=== PATIENT | female | born 1985 | race American Indian/Alaskan Native ===

== ENCOUNTER 2017-04-14 12:49 | Emergency (ER) | payer MEDICAID ==
[2017-04-14 14:02] LABS: Basophils % (Auto) 0.3 % (0.0-1.8); Hematocrit 37.4 % (30.3-42.9); Hemoglobin 11.8 gm/dl (10.1-14.3); Mean Corpuscular HGB Conc 32 % (30-34); Mean Corpuscular Volume 78 fl (79-97); Platelet Count 235 K/mm3 (140-440); Red Blood Count 4.78 M/mm3 (3.65-5.03); Red Cell Distribution Width 13.4 % (13.2-15.2); White Blood Count 12.7 K/mm3 (4.5-11.0)
[2017-04-14 14:05] LABS: Alanine Aminotransferase 6 units/L (7-56); Albumin 4.5 g/dL (3.9-5); Albumin/Globulin Ratio 1.7 %; Alkaline Phosphatase 37 units/L (35-129); Anion Gap 16 mmol/L; BUN/Creatinine Ratio 10; Blood Urea Nitrogen 4 mg/dL (7-17); Calcium 9.2 mg/dL (8.4-10.2); Carbon Dioxide 25 mmol/L (22-30); Glucose 88 mg/dL (65-100); Lipase 30 units/L (13-60); Potassium 3.8 mmol/L (3.6-5.0); Sodium 135 mmol/L (137-145); Total Protein 7.1 g/dL (6.3-8.2)
[2017-04-14 14:17] LABS: Mean Corpuscular Hemoglobin 25 pg (28-32)
[2017-04-14 14:57] LABS: Bilirubin,Urine NEG (Negative); Blood,Urine LG (Negative); Ketones,Urine NEG (Negative); Leukocyte Esterase,Urine LG (Negative); Mucus,Urine 3+ /HPF; Nitrite,Urine NEG (Negative); Urobilinogen,Urine < 2.0 mg/dL (<2.0)
[2017-04-14 15:03] LABS: RBC,Urine > 180.0 /HPF (0.0-6.0)
[2017-04-14 15:04] LABS: WBC,Urine > 180.0 /HPF (0.0-6.0)
--- NOTE | 2017-04-14 19:53 | Emergency Department Report ---
ED Female HPI - General Chief complaint: Urogenital-Female Stated complaint: RIGHT FLANK PAIN Time Seen by Provider: 04/14/17 19:48 Source: patient Mode of arrival: Ambulatory Limitations: No Limitations - History of Present Illness Initial comments: Patient here reports that she has severe right flank pain 3 days with nausea and diarrhea. She says she took a test yesterday it was positive. She says she is having burning with urination. Denies any vomiting. He is also have been lower pelvic cramping. She says she's spotting lightly from her vaginal area. Patient said that she has her MACHINE BURRER at [place] [facility] for ultrasound at [place] which was done today. She said that the field service technician poultry told her that there was no detected heart rate for her baby but she couldn' t give her any information she has placenta reported MACHINE BURRER and MACHINE BURRER will let her know. Patient said that she came to this ER because she wants to know what' s going on. Patient said that she had a positive test in February and she started bleeding and she went to [facility] where they told her that she had a miscarriage and she went back to [place] and they did follow-up test until they told her that her level shows that she was not . She said she did a test that came back positive so she went to [place] and they did a urine and it was positive and she states went to the MACHINE BURRER who ordered an ultrasound because she was having in flank pain. She says she had the ultrasound done today and she is not satisfied with their answer and came here to be seen. Patient also had STD testing done at [facility]. Denies any fever or chills. Denies any history of kidney stones. MD Complaint: vaginal bleeding, dysuria, pelvic pain, other (flank pain, nausea) Onset/Timin -: days(s) Radiation: non-radiating Severity: severe Severity scale (0 -10): 9 Quality: cramping Consistency: intermittent Worsens with: none Are you Now?: Yes (she said test at [facility] was positive) Associated Symptoms: vaginal bleeding, abdominal pain, nausea/vomiting, dysuria. denies: vaginal discharge, fever/chills, headaches, loss of appetite, hematuria, rash, seizure, shortness of breath, syncope, weakness - Related Data Sexually active: Yes Home Medications Medication Instructions Recorded Confirmed Last Taken metFORMIN [Glucophage] 04/30/16 Unknown Previous Rx's Medication Instructions Recorded Last Taken Type Nitrofurantoin Monohyd/M-Cryst 100 mg PO Q12H 7 Days #14 capsule 04/15/17 Unknown Rx [Macrobid 100 mg Capsule] Allergies Allergy/AdvReac Type Severity Reaction Status Date / Time No Known Allergies Allergy Verified 02/03/14 04:28 ED Review of Systems ROS: Stated complaint: RIGHT FLANK PAIN Other details as noted in HPI Comment: All other systems reviewed and negative Constitutional: no symptoms reported Respiratory: no symptoms reported Cardiovascular: denies: chest pain, palpitations, dyspnea on exertion, edema, syncope, paroxysmal nocturnal dyspnea Gastrointestinal: abdominal pain, nausea, diarrhea. denies: vomiting, constipation, hematemesis, melena, hematochezia Genitourinary: dysuria, abnormal menses. denies: urgency, frequency, hematuria , discharge, dyspareunia Musculoskeletal: back pain. denies: arthralgia, myalgia Skin: denies: rash Neurological: denies: headache, weakness, numbness, paresthesias, confusion, abnormal gait, vertigo ED Past Medical Hx - Past Medical History Previous Medical History?: Yes Hx Diabetes: Yes (pre-diabetes) Hx Seizures: Yes Hx Asthma: Yes Additional medical history: heart murmur - Surgical History Past Surgical History?: No - Family History Family history: no significant - Social History Smoking Status: Current Some Day Smoker Substance Use Type: None - Medications Home Medications: Home Medications Medication Instructions Recorded Confirmed Last Taken Type metFORMIN [Glucophage] 04/30/16 Unknown History Nitrofurantoin Monohyd/M-Cryst 100 mg PO Q12H 7 Days #14 capsule 04/15/17 Unknown Rx [Macrobid 100 mg Capsule] ED Physical Exam - General Limitations: No Limitations General appearance: alert, in no apparent distress - Head Head exam: Present: atraumatic, normocephalic, normal inspection - Eye Eye exam: Present: normal appearance, PERRL, EOMI Pupils: Present: normal accommodation - ENT ENT exam: Present: normal exam, normal orophraynx, mucous membranes moist, TM's normal bilaterally, normal external ear exam - Neck Neck exam: Present: normal inspection, full ROM. Absent: tenderness, meningismus, lymphadenopathy - Respiratory Respiratory exam: Present: normal lung sounds bilaterally. Absent: respiratory distress, wheezes, rales, rhonchi, stridor, chest wall tenderness, accessory muscle use, decreased breath sounds, prolonged expiratory - Cardiovascular Cardiovascular Exam: Present: regular rate, normal rhythm, normal heart sounds. Absent: systolic murmur, diastolic murmur - GI/Abdominal GI/Abdominal exam: Present: soft, normal bowel sounds. Absent: distended, tenderness, guarding, rebound, rigid, hyperactive bowel sounds, hypoactive bowel sounds, organomegaly, mass, bruit, pulsatile mass - External exam: Present: normal external exam. Absent: erythema, swelling, lesions, lacerations, ecchymosis, bleeding Speculum exam: Present: normal speculum exam. Absent: erythema, vaginal discharge, cervical discharge, vaginal bleeding, foreign body, tissue, laceration Bi-manual exam: Present: normal bi-manual exam. Absent: cervical motion tendernes, adnexal tenderness, adnexal mass, uterine tenderness - Expanded Exam Expanded Female exam: Absent: vaginal laceration, tissue present in vagina, herpetic lesions, vulvar erythema, vulvar tenderness, foreign body External exam: Present: normal Amniotic fluid: Present: none Speculum exam: Present: cervical OS closed. Absent: vaginal bleeding, vaginal discharge - Extremities Exam Extremities exam: Present: normal inspection, full ROM, normal capillary refill , other (no clubbing, cyanosis or edema. +2 pulses in all extremities. No neurovascular compromise). Absent: tenderness, pedal edema, joint swelling, calf tenderness - Back Exam Back exam: Present: normal inspection, full ROM, CVA tenderness (R), other ( patient able to ambulate without any difficulties). Absent: tenderness, CVA tenderness (L), muscle spasm, paraspinal tenderness, vertebral tenderness, rash noted - Neurological Exam Neurological exam: Present: alert, oriented X3, normal gait, reflexes normal. Absent: motor sensory deficit - Psychiatric Psychiatric exam: Present: normal affect, normal mood - Skin Skin exam: Present: warm, dry, intact, normal color. Absent: rash ED Course Vital Signs 04/14/17 04/14/17 04/15/17 13:15 20:01 00:50 Temperature 98.7 F 98.2 F Pulse Rate 69 66 63 Respiratory 18 16 18 Rate Blood Pressure 117/64 102/57 Blood Pressure 98/64 [Right] O2 Sat by Pulse 100 100 100 Oximetry - Reevaluation(s) Reevaluation #1: 04/14/17 20:30 Patient's stable. IV fluid normal saline started. Patient with UTI with large amount of blood. So I IV ceftriaxone 1 g. Patient given Reglan 10 mg IV and morphine 2 mg IV. Ultrasound renal bilateral, OB pending. I discussed the patient her lab results and that she has a urinary tract infection and reason for IV fluid. Reevaluation #2: 04/14/17 23:22 Patient is stable at present OB ultrasound revealed no IUP. Patient still with quantitative HCG that is reflected in early . Patient had miscarriage in February and followed up and said that her hCG one back to normal and she had a test done at [place] and now is positive . HCG is positive renal ultrasound normal without any hydronephrosis or renal calculi. Denies any nausea or pain at present. Pelvic exam done and normal. No vaginal bleeding noted on exam. ED Medical Decision Making - Lab Data Result diagrams: 04/14/17 13:31 04/14/17 13:31 Lab Results 04/14/17 04/14/17 04/14/17 Range/Units 13:31 13:31 13:31 WBC 12.7 H (4.5-11.0) K/mm3 RBC 4.78 (3.65-5.03) M/mm3 Hgb 11.8 (10.1-14.3) gm/dl Hct 37.4 (30.3-42.9) % MCV 78 L (79-97) fl MCH 25 L (28-32) pg MCHC 32 (30-34) % RDW 13.4 (13.2-15.2) % Plt Count 235 (140-440) K/mm3 Lymph % (Auto) 22.9 (13.4-35.0) % [place] % (Auto) 5.6 (0.0-7.3) % Eos % (Auto) 1.0 (0.0-4.3) % Baso % (Auto) 0.3 (0.0-1.8) % Lymph # 2.9 (1.2-5.4) K/mm3 [place] # 0.7 (0.0-0.8) K/mm3 Eos # 0.1 (0.0-0.4) K/mm3 Baso # 0.0 (0.0-0.1) K/mm3 Seg Neutrophils % 70.2 H (40.0-70.0) % Seg Neutrophils # 8.9 H (1.8-7.7) K/mm3 Sodium 135 L (137-145) mmol/L Potassium 3.8 (3.6-5.0) mmol/L Chloride 98.0 (98-107) mmol/L Carbon Dioxide 25 (22-30) mmol/L Anion Gap 16 mmol/L BUN 4 L (7-17) mg/dL Creatinine 0.4 L (0.7-1.2) mg/dL Estimated GFR > 60 ml/min BUN/Creatinine Ratio 10 % Glucose 88 (65-100) mg/dL Calcium 9.2 (8.4-10.2) mg/dL Total Bilirubin 0.40 (0.1-1.2) mg/dL AST 13 (5-40) units/L ALT 6 L (7-56) units/L Alkaline Phosphatase 37 (35-129) units/L Total Protein 7.1 (6.3-8.2) g/dL Albumin 4.5 (3.9-5) g/dL Albumin/Globulin Ratio 1.7 % Lipase 30 (13-60) units/L HCG, Quant 1006 H (0-4) mIU/mL Urine Color (Yellow) Urine Turbidity (Clear) Urine pH (5.0-7.0) Ur Specific [place] (1.003-1.030) Urine Protein (Negative) mg/dL Urine Glucose (UA) (Negative) mg/dL Urine Ketones (Negative) mg/dL Urine Blood (Negative) Urine Nitrite (Negative) Urine Bilirubin (Negative) Urine Urobilinogen (<2.0) mg/dL Ur Leukocyte Esterase (Negative) Urine WBC (Auto) (0.0-6.0) /HPF Urine RBC (Auto) (0.0-6.0) /HPF U Epithel Cells (Auto) (0-13.0) /HPF Urine WBC Clumps /HPF Urine Mucus /HPF Blood Type Antibody Screen 04/14/17 04/14/17 Range/Units 14:12 20:53 WBC (4.5-11.0) K/mm3 RBC (3.65-5.03) M/mm3 Hgb (10.1-14.3) gm/dl Hct (30.3-42.9) % MCV (79-97) fl MCH (28-32) pg MCHC (30-34) % RDW (13.2-15.2) % Plt Count (140-440) K/mm3 Lymph % (Auto) (13.4-35.0) % [place] % (Auto) (0.0-7.3) % Eos % (Auto) (0.0-4.3) % Baso % (Auto) (0.0-1.8) % Lymph # (1.2-5.4) K/mm3 [place] # (0.0-0.8) K/mm3 Eos # (0.0-0.4) K/mm3 Baso # (0.0-0.1) K/mm3 Seg Neutrophils % (40.0-70.0) % Seg Neutrophils # (1.8-7.7) K/mm3 Sodium (137-145) mmol/L Potassium (3.6-5.0) mmol/L Chloride (98-107) mmol/L Carbon Dioxide (22-30) mmol/L Anion Gap mmol/L BUN (7-17) mg/dL Creatinine (0.7-1.2) mg/dL Estimated GFR ml/min BUN/Creatinine Ratio % Glucose (65-100) mg/dL Calcium (8.4-10.2) mg/dL Total Bilirubin (0.1-1.2) mg/dL AST (5-40) units/L ALT (7-56) units/L Alkaline Phosphatase (35-129) units/L Total Protein (6.3-8.2) g/dL Albumin (3.9-5) g/dL Albumin/Globulin Ratio % Lipase (13-60) units/L HCG, Quant (0-4) mIU/mL Urine Color Yellow (Yellow) Urine Turbidity Clear (Clear) Urine pH 6.0 (5.0-7.0) Ur Specific [place] 1.024 (1.003-1.030) Urine Protein 100 mg/dl (Negative) mg/dL Urine Glucose (UA) Neg (Negative) mg/dL Urine Ketones Neg (Negative) mg/dL Urine Blood Lg (Negative) Urine Nitrite Neg (Negative) Urine Bilirubin Neg (Negative) Urine Urobilinogen < 2.0 (<2.0) mg/dL Ur Leukocyte Esterase Lg (Negative) Urine WBC (Auto) > 180.0 H (0.0-6.0) /HPF Urine RBC (Auto) > 180.0 (0.0-6.0) /HPF U Epithel Cells (Auto) 3.0 (0-13.0) /HPF Urine WBC Clumps 1+ /HPF Urine Mucus 3+ /HPF Blood Type B NEGATIVE Antibody Screen Negative Urine culture pending Patient had STD testing done at [facility] - Radiology Data Radiology results: report reviewed Bilateral renal ultrasound revealed normal renal ultrasound no evidence of obstructive uropathy. Ultrasound transabdominal and transvaginal revealed there is no intrauterine gestation identified a be very early IUP continue follow-up recommended. Positive urine fibroid. No evidence for endometrial thickening. No gestational sac or structure. There is a 1.5 cm mix echogenicity structure within the body of the uterus likely reflecting a fibroid and patient says she does have a history of fibroids. No abnormal adnexal mass or cyst notified. No free fluid identified in the cul-de-sac. - Medical Decision Making This case was discussed with Dr. Trujillo attending physician. He agrees with treatment plan and patient follow-up. ED course: Kevin came to the emergency room with her family member today reporting that she had a Machelle Randal that showed that she was and they did a ultrasound outpatient .Pt was complaining of flank pain and her MACHINE BURRER at [facility] to have outpatient ultrasound done. She said that they would not give her the ultrasound result because the field service technician poultry told her that she has to go back to her MACHINE BURRER for results. Patient said field service technician poultry also told her that the baby did not have a heartbeat. Patient is here today because she said she is concerned and she is having in abdominal pain, some vaginal spotting and back pain. Patient here to day and she had ultrasound done abdomen pelvis with transvaginal OB and reports shows no IUP. Patient with fibroids which shealready knew. Both ovaries are normal. Quantitative hCG positive correlated with very early less than 4 weeks. Urine analysis revealed large amount of blood positive nitrites and plus bacteria. Her CBC is stable, chemistry was also stable. Patient given IV fluid 1 L normal saline in the emergency room, Reglan 10 mg IV, morphine 2 mg IV and Rocephin 1 g IV to cover UTI. I discussed the patient ultrasound results, lab results. She also had ultrasound of her kidneys which revealed that she has no abnormalities in her kidneys. No hydronephrosis or renal calculi. This is also discussed the patient. She later told me that in February she found out that she was and then she had bleeding on March 18 for which she went to [facility] and they told her that she has a miscarriage. She said she went to [place] and had frequent test done which showed that she wasn't anymore. Patient says she started having nausea and had a test done which is positive so she went to [place] and had a test done and he told her that she was . This is why the OB doctor [place] ordered another ultrasound outpatient because patient was found to be . I asked patient if she had sexual activity since she had her miscarriage and she said she had sexual activity 3 weeks later which would put her at early IUP since her serum quantitative is 1006 and threatened miscarriage from spotting. Pelvic exam was normal. This was discussed patient and family detail and I told her that she needs to follow up with her MACHINE BURRER to call on Monday to schedule an appointment for follow-up ultrasound and hCG. She voiced understanding and patient discharged home prescription for Macrobid and to increase her fluid intake. Critical care attestation.: If time is entered above; I have spent that time in minutes in the direct care of this critically ill patient, excluding procedure time. ED Disposition Clinical Impression: Flank pain, acute, Pelvic pain, Vaginal bleeding in , Threatened , Acute cystitis with hematuria Disposition: DC-01 TO HOME OR SELFCARE Is pt being admited?: No Does the pt Need Aspirin: No Condition: Stable Instructions: Threatened Miscarriage (ED), Urinary Tract Infection in Women (ED ), Abdominal Pain (ED), Flank Pain (ED) Additional Instructions: Please follow up with the MACHINE BURRER at [place] on Monday for repeat serum hCG level for . If you start developing increased bleeding , please return back to the emergency room He is taking antibiotic as prescribed for urinary tract infection Please increase your fluid intake Prescriptions: Nitrofurantoin Monohyd/M-Cryst [Macrobid 100 mg Capsule] 100 mg PO Q12H 7 Days # 14 capsule Referrals: [facility] [Outside] - 04/17/17 (Please follow up with the OB/ [facility] at [facility] on Monday) FRANKY PATEL MD [Staff Physician] - 04/17/17 Forms: Accompanied Note, Work/School Release Form(ED)
[2017-04-14] MEDS ORDERED: REGLAN IV ONE (20:08)
[2017-04-14] MEDS ORDERED: NACL 0.9% 1000 ML 1,000 ML IV ONE (20:08)
[2017-04-14] MEDS ORDERED: MORPHINE IM ONE (20:33)
[2017-04-14] MEDS ORDERED: ROCEPHIN/NS 1 GM/50 ML 1 GM/50 ML BAG IV ONE (21:00)
--- NOTE | 2017-04-14 21:58 | Ultrasound Report ---
FINAL REPORT EXAM: US OB TRANSVAGINAL HISTORY: , abdominal pain TECHNIQUE: Ultrasound obstetrical transvaginal PRIORS: None. FINDINGS: The uterus measures 10.1 x 5.2 x 5.9 centimeters. No evidence for endometrial thickening. No gestational sac or structures identified within the uterus There is a 1.5 centimeter mixed echogenicity structure within body of the uterus likely reflecting a fibroid. Right ovary is 3.2 x 2.1 x 2.1 centimeters Left ovary is 1.1 x 2 x 1 1 centimeters No abnormal adnexal mass or cyst identified No free fluid identified in the cul-de-sac IMPRESSION: No intrauterine gestation identified. May be very early IUP. Continued followup recommended Uterine fibroid
--- NOTE | 2017-04-14 22:01 | Ultrasound Report ---
FINAL REPORT EXAM: US OB < = 14 WEEKS FETUS HISTORY: , abdominal pain TECHNIQUE: Ultrasound obstetrical transabdominal PRIORS: Correlated with the transvaginal ultrasound same day FINDINGS: The uterus measures 10.1 x 5.2 x 5.9 centimeters. No evidence for endometrial thickening. No gestational sac or structures identified within the uterus There is a 1.5 centimeter mixed echogenicity structure within body of the uterus likely reflecting a fibroid. Right ovary is 3.2 x 2.1 x 2.1 centimeters Left ovary is 1.1 x 2 x 1 1 centimeters No abnormal adnexal mass or cyst identified No free fluid identified in the cul-de-sac IMPRESSION: No intrauterine gestation identified. May be very early IUP. Continued followup recommended Uterine fibroid
--- NOTE | 2017-04-14 22:45 | Ultrasound Report ---
FINAL REPORT EXAM: US RENAL BILAT HISTORY: flank pain with uti and bleeding TECHNIQUE: Ultrasound kidneys PRIORS: None. FINDINGS: Right kidney is 11.2 x 4.0 x 5.5 centimeters The left kidney is 11.4 x 4.7 x 5.5 centimeters No evidence for hydronephrosis or nephrolithiasis. There is normal renal echogenicity. Urinary bladder is nondistended. IMPRESSION: Normal renal ultrasound no evidence for obstructive uropathy
[2017-04-15 00:53] VITALS: BP 102/57
== END 2017-04-15 02:07 | disposition home or self-care (01) ==
LOC: ED 12:49
DX: O20.0 Threatened abortion (principal); O23.11 Infections of bladder in pregnancy, first trimester; F17.200 Nicotine dependence, unspecified, uncomplicated; Z3A.01 Less than 8 weeks gestation of pregnancy
CPT/HCPCS: 36415; 76770; 76801; 76817; 80053; 81001; 83690; 84702; 85025; 86850; 86900; 86901; 87076; 87086; 87186; 96361; 96365; 96372; 96375; 99284; J0696; J2270; J2765; J7030

== ENCOUNTER 2017-09-22 08:28 | Outpatient (CLI) | payer MEDICAID | END 2017-09-22 10:38 | disposition home or self-care (01) | LOC: TRG 08:28 → LAB 08:28 → TRG 10:23 | PROVIDERS: ATTEND Obstetrics & Gynecology | DX: O36.0120 Maternal care for anti-D [Rh] antibodies, second trimester, not applicable or unspecified (principal); Z3A.27 27 weeks gestation of pregnancy | CPT/HCPCS: 86850; 86900; 86901; 96372; J2790 ==

== ENCOUNTER 2017-10-04 10:08 | Outpatient (CLI) | payer MEDICAID ==
[2017-10-04 10:33] VITALS: BP 108/53
== END 2017-10-04 11:45 | disposition still patient (30) ==
LOC: TRG 10:08
PROVIDERS: ATTEND Obstetrics & Gynecology
DX: O47.03 False labor before 37 completed weeks of gestation, third trimester (principal); Z3A.30 30 weeks gestation of pregnancy
CPT/HCPCS: 59025

== ENCOUNTER 2017-10-04 12:03 | Emergency (ER) | payer MEDICAID ==
--- NOTE | 2017-10-04 14:13 | Emergency Department Report ---
- General Chief Complaint: Upper Respiratory Infection Stated Complaint: ALLERGY Time Seen by Provider: 10/04/17 13:51 Source: patient Mode of arrival: Wheelchair Limitations: No Limitations - History of Present Illness Initial Comments: 32-year-old -[place] female that is 29 weeks comes in for seasonal allergy symptoms. Patient reports that she's been having runny nose and nasal congestion denies any headache or fever or chills and also no vomiting. She reports that a little cough after she feels a mucus drips down her throat. Patient is followed by [facility]. She was seen there prior to arrival here for OB clearance. She reports that she has an appointment with [facility] of the next hour. MD Complaint: rhinorrhea, nasal congestion Severity: mild Improves With: other (Benadryl) Associated Symptoms: denies other symptoms - Related Data Previous Rx's Medication Instructions Recorded Last Taken Type Loratadine [Claritin] 10 mg PO DAILY #60 tablet 10/04/17 Unknown Rx Triamcinolone Acetonide [Nasacort 16.9 ml NS QDAY #1 spray 10/04/17 Unknown Rx SPRAY] Allergies Allergy/AdvReac Type Severity Reaction Status Date / Time No Known Allergies Allergy Verified 02/03/14 04:28 ED Review of Systems ROS: Stated complaint: ALLERGY Other details as noted in HPI Constitutional: denies: chills, fever Eyes: denies: eye pain, eye discharge, vision change ENT: congestion, other (rhinorrhea, sneezing) Respiratory: denies: cough, shortness of breath, wheezing Gastrointestinal: denies: abdominal pain, nausea, diarrhea Genitourinary: denies: urgency, dysuria, discharge Neurological: denies: headache, weakness, paresthesias Psychiatric: denies: anxiety, depression ED Past Medical Hx - Past Medical History Hx Hypertension: No Hx Diabetes: No Hx Deep Vein Thrombosis: No Hx Renal Disease: No Hx Sickle Cell Disease: No Hx Seizures: No Hx Asthma: Yes (last attack) Hx HIV: No Additional medical history: heart murmur - Surgical History Past Surgical History?: No - Social History Smoking Status: Never Smoker Substance Use Type: None - Medications Home Medications: Home Medications Medication Instructions Recorded Confirmed Last Taken Type Loratadine [Claritin] 10 mg PO DAILY #60 tablet 10/04/17 Unknown Rx Triamcinolone Acetonide [Nasacort 16.9 ml NS QDAY #1 spray 10/04/17 Unknown Rx SPRAY] ED Physical Exam - General Limitations: No Limitations General appearance: alert, in no apparent distress - Head Head exam: Present: atraumatic, normocephalic - Eye Eye exam: Present: normal appearance - ENT ENT exam: Present: mucous membranes moist - Neck Neck exam: Present: normal inspection, full ROM. Absent: lymphadenopathy - Respiratory Respiratory exam: Present: normal lung sounds bilaterally - Cardiovascular Cardiovascular Exam: Present: regular rate, normal rhythm. Absent: systolic murmur, diastolic murmur, rubs, gallop - Neurological Exam Neurological exam: Present: alert, oriented X3 - Psychiatric Psychiatric exam: Present: normal affect, normal mood - Skin Skin exam: Present: warm, dry, intact, normal color. Absent: rash ED Medical Decision Making - Medical Decision Making Patient's been evaluated with his provider fast track. I discussed the patient is sounds like seasonal allergies who recommended taking Claritin 10 mg daily and Nasacort once a day. Discussed with patient she needs to speak with her OB/ [facility]OR BIKE MECHANIC for further evaluation and treatment. Patient verbalized understanding Critical care attestation.: If time is entered above; I have spent that time in minutes in the direct care of this critically ill patient, excluding procedure time. ED Disposition Clinical Impression: Allergic rhinitis Qualifiers: Allergic rhinitis trigger: pollen Allergic rhinitis seasonality: unspecified seasonality Qualified Code(s): J30.1 - Allergic rhinitis due to pollen Disposition: DC-01 TO HOME OR SELFCARE Is pt being admited?: No Does the pt Need Aspirin: No Condition: Stable Instructions: Allergic Rhinitis (ED) Additional Instructions: Please take Claritin and Nasacort daily. If he develop any fever or shortness of breath chest pain please return back to the emergency room. Prescriptions: Loratadine [Claritin] 10 mg PO DAILY #60 tablet Triamcinolone Acetonide [Nasacort SPRAY] 16.9 ml NS QDAY #1 spray Referrals: [facility] [Provider Group] - 3-5 Days Forms: Work/School Release Form(ED), Accompanied Note
[2017-10-04 14:21] VITALS: BP 111/55
== END 2017-10-04 14:21 | disposition home or self-care (01) ==
LOC: ED 12:03
DX: O26.893 Other specified pregnancy related conditions, third trimester (principal); J30.9 Allergic rhinitis, unspecified; Z3A.29 29 weeks gestation of pregnancy
CPT/HCPCS: 99282

== ENCOUNTER 2017-12-23 13:54 | Inpatient (IN) | payer MEDICAID ==
[2017-12-23] MEDS: LACTATED RINGERS 1,000 ML IV SCH ×3 (14:00→16:19)
[2017-12-23] MEDS ORDERED: LACTATED RINGERS 1,000 ML ONE (14:16)
[2017-12-23] MEDS ORDERED: XYLOCAINE 2% INFILTRATI ONE (14:33)
[2017-12-23] MEDS ORDERED: ePHEDrine SULFATE IV PRN (14:33)
[2017-12-23 14:43] LABS: Hematocrit 32.9 % (30.3-42.9); Hemoglobin 10.9 gm/dl (10.1-14.3); Mean Corpuscular HGB Conc 33 % (30-34); Mean Corpuscular Hemoglobin 26 pg (28-32); Mean Corpuscular Volume 79 fl (79-97); Platelet Count 202 K/mm3 (140-440); Red Blood Count 4.16 M/mm3 (3.65-5.03); Red Cell Distribution Width 14.8 % (13.2-15.2)
[2017-12-23] MEDS ORDERED: BRETHINE SUB-Q PRN (14:44)
--- NOTE | 2017-12-23 14:49 | History and Physical Report ---
History of Present Illness Date of examination: 12/23/17 Date of admission: 12/23/17 13:54 Chief complaint: Active labor History of present illness: 32 year old presents to L&D in active labor. Patient denies leaking of fluid or vaginal bleeding. Patient reports active movement. Patient received care at [facility]. records are available. LMP 02/11/17. EDC 12/16/17 (based on 14 week, 5 day ultrasound). Patient saw perinatology during her due to history of delivery with a previous . Patient has had anemia during and has been on iron supplementation. 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 labs are as follows: B negative, antibody screen negative, rubella immune, RPR nonreactive, hepatitis B surface antigen negative, HIV negative, HSV 2 serology positive, hemoglobin electrophoresis AA, chlamydia negative, gonorrhea negative, quad screen negative, GBS negative, diabetes screen 92. 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 denies: chlamydia, gonorrhea, hepatitis B, hepatitis C, HIV, syphilis Family/Genetic History: diabetes, other (thyroid disease) Social history: lives with family, full code. denies: smoking, alcohol abuse, prescription drug abuse, IV drug use - Obstetrical History Expected Date of Delivery: 12/16/17 Actual Gestation: 41 Week(s) 0 Day(s) : 7 Para: 4 Hx # Term Pregnancies: 4 Number of Pregnancies: 1 Spontaneous Abortions: 1 Induced : 1 Medications and Allergies Allergies Allergy/AdvReac Type Severity Reaction Status Date / Time No Known Allergies Allergy Verified 02/03/14 04:28 Home Medications Medication Instructions Recorded Confirmed Last Taken Type Valtrex 500 mg PO DAILY 12/23/17 12/23/17 1 Day Ago History ~12/22/17 Active Meds: Active Medications Ephedrine Sulfate (Ephedrine Sulfate) 10 mg IV Q2M PRN PRN Reason: Hypotension Lactated Ringer's (Lactated Ringers) 1,000 mls @ 125 mls/hr IV DIRECT HOMERO Oxytocin/Sodium Chloride (Pitocin/Ns 20 Unit/1000ml Drip) 20 units in 1,000 mls @ 125 mls/hr IV DIRECT HOMERO Lidocaine (Xylocaine 2%) 20 ml INFILTRATI ONCE ONE Stop: 12/23/17 14:34 Terbutaline Sulfate (Brethine) 0.25 mg SUB-Q ONCE PRN PRN Reason: Hyperstimulation/Hypertonicity Valacyclovir HCl (Valtrex) 500 mg PO BID HOMERO Review of Systems All systems: negative (contractions) - Vital Signs Vital signs: Vital Signs Pulse BP Pulse Ox 74 135/64 100 12/23/17 14:11 12/23/17 14:11 12/23/17 14:11 Temp Pulse Resp BP Pulse Ox 74 135/64 100 12/23/17 14:11 12/23/17 14:11 12/23/17 14:11 - Physical Exam Breasts: Positive: deferred Cardiovascular: Regular rate, Normal S1, Normal S2, No murmurs Lungs: Positive: Clear to auscultation Abdomen: Positive: normal appearance, soft. Negative: distention, tenderness, guarding, rigidity Genitourinary (Female): Positive: normal external genitalia, normal perenium. Negative: perineal/vulvar lesions (no lesions seen on careful exam with bright light upon admission) Vagina: Positive: normal moisture Uterus: Positive: enlarged. Negative: tender - Obstetrical FHR: category 2 FHR comments: Normal baseline rate, moderate variability, occasional variable FHR deceleration with rapid return to baseline. Uterine Contraction Monitor Mode: External Cervical Dilatation: 8.5 Cervical Effacement Percentage: 90 station: -1 Uterine Contraction Frequency (min): every 2-3 minutes Uterine Contraction Pattern: Regular Uterine Contraction Intensity: Moderate Results Result Diagrams: 12/23/17 14:00 All other labs normal. Assessment and Plan A: at 41 weeks gestation. Active labor. GBS negative. P: Admit. Anticipate .
[2017-12-23] MEDS ORDERED: PITOCin/NS 20 UNIT/1000ML DRIP 20 UNITS/1,000 ML BAG IV SCH (15:00)
[2017-12-23] MEDS ORDERED: NARCAN 2 MG/2 ML IV PRN (15:20)
[2017-12-23] MEDS ORDERED: VALTREX PO SCH (16:00)
[2017-12-23] MEDS ORDERED: fentaNYL-BUPIV 2 MCG/ML-0.125% 200 MCG/100 ML BAG EPIDURAL SCH ×2 (16:00)
[2017-12-23] MEDS ORDERED: ZOFRAN IV PRN (19:53)
[2017-12-23] MEDS ORDERED: BENADRYL PO PRN (19:53)
[2017-12-23] MEDS ORDERED: DERMOPLAST TP PRN (19:53)
[2017-12-23] MEDS ORDERED: PHENERGAN PO PRN (19:53)
[2017-12-23] MEDS ORDERED: DULCOLAX PR PRN (19:53)
[2017-12-23] MEDS ORDERED: TUCKS PAD TP PRN (19:53)
[2017-12-23] MEDS ORDERED: LANSINOH TP PRN (19:53)
[2017-12-23] MEDS ORDERED: NORCO 5/325 PO PRN (19:53)
[2017-12-23] MEDS ORDERED: SODIUM CHLORIDE FLUSH SYRINGE 10 ML IV SCH (20:00)
--- NOTE | 2017-12-23 20:11 | Procedure Note ---
OB Delivery Note - Delivery Date of Delivery: 12/23/17 Surgeon: JESSICA HARDY Estimated blood loss: other (250 cc) - Vaginal Delivery presentation: vertex Delivery position: OA Intrapartum events: shoulder dystocia Delivery induction: none Delivery monitor: external FHT, external uterine Route of delivery: Delivery placenta: spontaneous Delivery cord: 3 umbilical vessels Episiotomy: midline Delivery repair: vicryl Anesthesia: epidural Delivery comments: Spontaneous vaginal delivery of liveborn male over midline episiotomy with apgars of 8 and 9. Right anterior shoulder dystocia, resolved with delivery of posterior arm. NICU present for delivery due to variable FHR decelerations noted prior to delivery. 3 vessel cord double clamped and cut and baby taken to radiant warmer for evaluation. Spontaneous cry and respirations. Cord blood obtained. Spontaneous delivery of intact placenta; membranes do not appear intact; trailing membranes in vagina; these were removed. After this vaginal sweep was negative. Pitocin to IV fluids after delivery of placenta. Fundus firm and midline. EBL 250 cc. Midline episiotomy repaired with 2-0 vicryl. Sponge count correct. Started patient on PO Methergine and pelvic US ordered to check for possible retained membranes and accessory placental lobe. Informed Dr. Frank of nonintact membranes and above interventions.
--- NOTE | 2017-12-23 21:31 | Ultrasound Report ---
FINAL REPORT PROCEDURE: US OB LIMITED is TECHNIQUE: Real-time limited sonographic examination was performed for evaluation of size, position, heartbeat, fluid volume for each fetus with image documentation (1 or more fetuses). CPT 94496 HISTORY: Possible retained placenta or membranes COMPARISON: No prior studies are available for comparison. FINDINGS: No retained products of conception are identified. The uterus is prominent. Ovaries are not demonstrated. There is no free pelvic fluid. IMPRESSION: No specific evidence of retained products of conception.
[2017-12-23] MEDS: METHERGINE PO SCH (21:47)
[2017-12-23] MEDS: MOTRIN PO SCH (21:47)
[2017-12-24] MEDS: MOTRIN PO SCH ×4 (05:10→17:46)
[2017-12-24] MEDS: METHERGINE PO SCH ×4 (05:11→17:46)
[2017-12-24 09:14] LABS: Hematocrit 33.5 % (30.3-42.9); Hemoglobin 10.9 gm/dl (10.1-14.3)
--- NOTE | 2017-12-24 11:19 | Progress Note ---
Assessment and Plan A: day 1 S/P . Anemia. P: Supplement with iron. Anticipate discharge tomorrow. Subjective - Subjective Date of service: 12/24/17 Principal diagnosis: day 1 S/P Interval history: day 1 S/P spontaneous vaginal delivery. Patient is doing well. She reports small amount of lochia. Patient is voiding without difficulty. She is ambulating well. She is tolerating a regular diet without nausea or vomiting. She denies headache, cough, chest pain, shortness of breath, abdominal pain, leg pain, heavy vaginal bleeding, or symptoms of depression. Ultrasound shows no evidence of retained placental fragments. Patient is taking PO Methergine every 6 hours. Patient reports: appetite normal, voiding normally, pain well controlled, flatus , ambulating normally : doing well Objective - Vital Signs Latest vital signs: Vital Signs Temp Pulse Resp BP BP Pulse Ox 12/24/17 07:54 98.4 F 60 16 110/71 98 12/24/17 04:15 98.6 F 61 18 115/50 98 12/23/17 22:15 98.2 F 68 18 129/79 99 12/23/17 21:43 54 L 137/76 12/23/17 21:28 57 L 118/65 12/23/17 21:15 57 L 100 12/23/17 21:13 55 L 113/64 12/23/17 21:10 55 L 100 12/23/17 21:05 60 100 12/23/17 21:00 56 L 100 12/23/17 20:58 56 L 115/58 12/23/17 20:55 59 L 100 12/23/17 20:50 60 100 12/23/17 20:45 60 100 12/23/17 20:43 60 138/63 12/23/17 20:40 61 100 12/23/17 20:35 58 L 100 12/23/17 20:30 58 L 100 12/23/17 20:28 59 L 106/55 12/23/17 20:25 58 L 100 12/23/17 20:20 59 L 100 12/23/17 20:15 78 100 12/23/17 20:13 56 L 98/53 12/23/17 20:10 57 L 100 12/23/17 20:05 68 100 07/28/18 20:00 57 L 100 12/23/17 19:58 68 104/55 18 19:55 63 100 18 19:50 65 100 18 19:45 70 100 18 19:43 75 107/58 18 19:40 75 99 18 19:35 68 99 18 19:30 66 99 18 19:27 74 106/55 12/23/17 19:25 68 99 18 19:23 69 117/55 18 19:20 76 99 18 19:15 68 100 18 19:13 61 100/55 12/23/17 19:10 65 100 12/23/17 19:05 65 100 12/23/17 19:00 71 116/75 86 12/23/17 18:58 72 83 L 12/23/17 18:55 71 100 12/23/17 18:52 63 89 12/23/17 18:50 73 100 12/23/17 18:47 73 90 12/23/17 18:45 64 100 18 18:43 66 122/57 12/23/17 18:40 80 100 18 18:35 74 100 18 18:30 63 100 18 18:25 65 100 18 18:20 61 100 18 18:16 59 L 93/50 18 18:15 61 100 18 18:10 61 100 18 18:05 60 100 18 18:00 60 100 18 17:58 60 116/65 18 17:55 61 100 18 17:50 75 93 18 17:46 57 L 94 12/23/17 17:45 65 99 18 17:44 73 110/69 18 17:41 79 79 L 18 17:40 77 100 18 17:35 71 99 18 17:30 84 99 18 17:28 76 109/56 18 17:25 85 100 18 17:20 81 100 12/23/17 17:16 90 122/60 12/23/17 17:15 97 H 100 12/23/17 17:10 85 100 12/23/17 17:05 79 100 12/23/17 17:00 65 100 12/23/17 16:58 60 100/56 12/23/17 16:55 59 L 100 12/23/17 16:50 74 100 12/23/17 16:45 54 L 103/62 100 12/23/17 16:40 54 L 100 12/23/17 16:35 55 L 98 12/23/17 16:30 56 L 98 12/23/17 16:26 55 L 99/61 12/23/17 16:25 58 L 98 12/23/17 16:23 62 102/64 12/23/17 16:20 57 L 104/68 100 12/23/17 16:17 59 L 100/68 12/23/17 16:15 61 99 12/23/17 16:14 69 92/54 12/23/17 16:11 67 102/58 12/23/17 16:10 65 100 12/23/17 16:08 58 L 107/59 12/23/17 16:05 63 103/59 100 12/23/17 16:02 67 104/63 12/23/17 16:00 79 99 12/23/17 15:59 65 106/61 12/23/17 15:56 63 107/60 12/23/17 15:55 67 99 12/23/17 15:53 68 108/55 12/23/17 15:50 70 100 12/23/17 15:45 77 99 12/23/17 15:23 72 91 12/23/17 15:22 69 95 12/23/17 15:17 68 89 12/23/17 15:12 64 99 12/23/17 15:11 80 92 12/23/17 15:07 68 99 12/23/17 15:02 71 100 12/23/17 14:57 67 100 12/23/17 14:52 84 100 12/23/17 14:47 70 100 12/23/17 14:42 97.7 F 79 16 135/64 100 12/23/17 14:11 74 135/64 100 Intake and Output 12/23/17 12/24/17 12/24/17 23:59 07:59 15:59 Intake Total 129.167 240 Output Total 600 Balance -470.833 240 Intake: IV 129.167 Lactated Ringers 1,000 ml 129.167 @ 125 mls/hr IV DIRECT HOMERO Rx#:[id number] Oral 240 Output: Urine 600 Void 600 Other: Total, Intake Amount 240 Total, Output Amount 600 # Voids Void 1 Estimated Blood Loss 250 - Exam Breasts: Present: deferred Cardiovascular: Present: Regular rate, Normal S1, Normal S2 Lungs: Present: Clear to auscultation Abdomen: Present: normal appearance, soft. Absent: distention, tenderness, guarding, rigidity Uterus: Present: normal, firm, fundal height at umbilicus. Absent: bogginess, tenderness Extremities: Present: normal. Absent: tenderness, edema - Labs Labs: Abnormal lab results 12/23/17 Range/Units 14:00 WBC 12.9 H (4.5-11.0) K/mm3 MCH 26 L (28-32) pg
[2017-12-25] MEDS: MOTRIN PO SCH ×2 (01:05→05:57)
[2017-12-25] MEDS: METHERGINE PO SCH ×3 (01:06→14:20)
--- NOTE | 2017-12-25 10:01 | Progress Note ---
Assessment and Plan - Patient Problems (1) Status post normal vaginal delivery Current Visit: Yes Status: Acute Plan to address problem: PPD 2 - stable Discharge to home today Follow up at [facility] in 6 weeks for exam Subjective - Subjective Date of service: 12/25/17 Principal diagnosis: s/p , PPD #2 Patient reports: appetite normal, voiding normally, pain well controlled, ambulating normally : doing well, bottle feeding Objective - Vital Signs Latest vital signs: Vital Signs Temp Pulse Resp BP BP Pulse Ox 12/25/17 08:22 99.4 F 55 L 14 130/67 99 12/25/17 00:54 98.3 F 52 L 20 129/68 98 12/24/17 15:46 54 L 115/61 96 12/24/17 15:45 98.1 F 52 L 16 121/46 98 12/24/17 12:52 97.4 F L 83 18 98/61 98 12/24/17 11:20 61 93/43 97 Intake and Output 12/24/17 12/25/17 12/25/17 23:59 07:59 15:59 Intake Total 240 Balance 240 Intake: Oral 240 Other: Total, Intake Amount 240 # Voids Void 1 - Exam Cardiovascular: Present: Regular rate Lungs: Present: Clear to auscultation Abdomen: Present: normal appearance, soft Vulva: both: normal, laceration/episiotomy (healing well) Uterus: Present: normal, firm, fundal height below umbilicus Extremities: Present: normal
--- NOTE | 2017-12-25 10:06 | Discharge Summary ---
Providers - Providers Date of Admission: 12/23/17 13:54 Date of discharge: 12/25/17 Attending physician: JOHN SINGH MD 12/25/17 07:36 Consult to Case Management [CONS] Routine Services Needed at Discharge: Other Notified:: attempted Phone number called:: [phone] Was contact made?: No Primary care physician: JOHN SINGH MD Hospitalization Reason for admission: active labor, IUP at term Delivery: Episiotomy: midline Laceration: none Other procedures: none complications: none Discharge diagnosis: IUP at term delivered baby: male Hospital course: Uncomplicated Condition at discharge: Stable Disposition: DC-01 TO HOME OR SELFCARE - Discharge Diagnoses (1) Status post normal vaginal delivery Status: Acute Plan - Provider Discharge Summary Activity: routine, no sex for 6 weeks, no heavy lifting 4 weeks, no strenuous exercise Diet: routine Instructions: routine Additional instructions: [] Smoking cessation referral if applicable(refer to patient education folder for contact #) [] Refer to [facility] Booklet Call your doctor immediately for: * Fever > 100.5 * Heavy vaginal bleeding ( >1 pad per hour) * Severe persistent headache * Shortness of breath * Reddened, hot, painful area to leg or breast * Drainage or odor from incision. * Keep incision clean and dry at all times and follow doctor's instructions regarding bathing/showering - Follow up plan Follow up: JOHN SINGH MD [Primary Care Provider] - 6 Weeks (Follow up at [facility] in 6 weeks for exam)
[2017-12-25 16:54] VITALS: BP 141/67
== END 2017-12-25 18:35 | disposition home or self-care (01) | DRG 774 ==
LOC: LD 13:54 → OB 21:56
PROVIDERS: ADMIT Obstetrics & Gynecology; ATTEND Obstetrics & Gynecology
PROC: 10E0XZZ Delivery of Products of Conception, External Approach (ICD-10-PCS; principal; 2017-12-23)
PROC: 3E0R3BZ Introduction of Anesthetic Agent into Spinal Canal, Percutaneous Approach (ICD-10-PCS; 2017-12-23)
PROC: 00HU33Z Insertion of Infusion Device into Spinal Canal, Percutaneous Approach (ICD-10-PCS; 2017-12-23)
PROC: 0W8NXZZ Division of Female Perineum, External Approach (ICD-10-PCS; 2017-12-23)
PROC: 3E0334Z Introduction of Serum, Toxoid and Vaccine into Peripheral Vein, Percutaneous Approach (ICD-10-PCS; 2017-12-24)
DX: O99.02 Anemia complicating childbirth (principal); O98.52 Other viral diseases complicating childbirth; O99.52 Diseases of the respiratory system complicating childbirth; O76 Abnormality in fetal heart rate and rhythm complicating labor and delivery; O66.0 Obstructed labor due to shoulder dystocia; D64.9 Anemia, unspecified; Z83.3 Family history of diabetes mellitus; Z83.49 Family history of other endocrine, nutritional and metabolic diseases; Z3A.41 41 weeks gestation of pregnancy; Z37.0 Single live birth; Z79.899 Other long term (current) drug therapy; B00.9 Herpesviral infection, unspecified
CPT/HCPCS: 36415; 76815; 82962; 85014; 85018; 85027; 85461; 86592; 86850; 86900; 86901; 88307; J2590; J2790; J7120

== ENCOUNTER 2019-08-05 16:53 | Emergency (ER) | payer MEDICAID ==
[2019-08-05] MEDS ORDERED: ACETAMINOPHEN 325 MG/10.15 ML ORAL LIQD UNIT DOSE PO ONE (19:56)
[2019-08-05] MEDS ORDERED: ALBUTEROL 2.5 MG/3 ML NEBU IH ONE (19:56)
[2019-08-05] MEDS ORDERED: predniSONE 20 MG TAB PO ONE (19:56)
[2019-08-05] MEDS ORDERED: ACETAMINOPHEN 500 MG TAB PO ONE (19:56)
--- NOTE | 2019-08-05 20:34 | Emergency Department Report ---
ED Lower Extremity HPI - General Chief Complaint: Upper Respiratory Infection Stated Complaint: FLU 8 MONTHS PREG Time Seen by Provider: 08/05/19 19:55 Source: patient Mode of arrival: Ambulatory Limitations: No Limitations - Related Data Home Medications Medication Instructions Recorded Confirmed Last Taken Valtrex 500 mg PO DAILY 12/23/17 12/23/17 1 Day Ago ~12/22/17 Allergies Allergy/AdvReac Type Severity Reaction Status Date / Time No Known Allergies Allergy Verified 02/03/14 04:28 ED Review of Systems ROS: Stated complaint: FLU 8 MONTHS PREG Other details as noted in HPI ED Past Medical Hx - Past Medical History Previous Medical History?: Yes Hx Hypertension: No Hx Diabetes: No Hx Deep Vein Thrombosis: No Hx Renal Disease: No Hx Sickle Cell Disease: No Hx Seizures: No Hx Asthma: Yes (last attack about 1 year) Hx COPD: No Hx HIV: No Additional medical history: heart murmur - Social History Smoking Status: Never Smoker Substance Use Type: None - Medications Home Medications: Home Medications Medication Instructions Recorded Confirmed Last Taken Type Valtrex 500 mg PO DAILY 12/23/17 12/23/17 1 Day Ago History ~12/22/17 ED Physical Exam - General Limitations: No Limitations ED Course Vital Signs 08/05/19 19:03 Temperature 99.4 F Pulse Rate 86 Respiratory 18 Rate Blood Pressure 118/63 O2 Sat by Pulse 100 Oximetry Critical care attestation.: If time is entered above; I have spent that time in minutes in the direct care of this critically ill patient, excluding procedure time. ED Disposition Condition: Stable
[2019-08-05 20:45] VITALS: BP 110/61
--- NOTE | 2019-08-05 20:58 | Emergency Department Report ---
- General Chief Complaint: Upper Respiratory Infection Stated Complaint: FLU 8 MONTHS PREG Time Seen by Provider: 08/05/19 19:55 Source: patient Mode of arrival: Ambulatory Limitations: No Limitations - History of Present Illness Initial Comments: Ms. Lacey is a 34-year-old -[place] female who is currently 35 weeks . She has history of asthma and presents for flulike symptoms acute including cough fever chills sore throat and sinus pain and pressure. She denies wheezing or shortness of breath however she states she is out of her albuterol inhaler. Current symptoms are exacerbated by activity. Symptoms are relieved by nothing tried. Cough is productive yellow thick. States multiple contacts with positive flu. Patient denies abdominal pain, vaginal bleeding, vaginal discharge, back pain there is no contractions. She has seen [facility] this week . And is set to deliver in 2 to 3 weeks and denies any symptoms. She rates symptoms at 3/10. MD Complaint: fever, cough, sore throat, rhinorrhea, nasal congestion Onset/Timin -: week(s) Severity: moderate Severity scale (0 -10): 4 Quality: aching Consistency: constant Improves With: nothing Worsens With: activity Context: sick contacts Associated Symptoms: rhinorrhea, nasal congestion, sore throat, cough. denies: fever, chills, headache, stiff neck, chest pain, abdominal pain, nausea, vomiting, diarrhea, dysuria, rash, ear pain Treatments Prior to Arrival: none - Related Data Home Medications Medication Instructions Recorded Confirmed Last Taken Valtrex 500 mg PO DAILY 12/23/17 12/23/17 1 Day Ago ~12/22/17 Previous Rx's Medication Instructions Recorded Last Taken Type Acetaminophen [Mapap] 650 mg PO Q6H PRN #30 tablet 08/05/19 Unknown Rx Albuterol INH(or & Nicu Only) 2 puff IH QID PRN #8.5 gram 08/05/19 Unknown Rx [ProAir HFA Inhaler] Azithromycin [Zithromax Z-LINA] 250 mg PO DAILY 5 Days #6 tab 08/05/19 Unknown Rx predniSONE [Deltasone] 40 mg PO QDAY 5 Days #10 tab 08/05/19 Unknown Rx Allergies Allergy/AdvReac Type Severity Reaction Status Date / Time No Known Allergies Allergy Verified 02/03/14 04:28 ED Review of Systems ROS: Stated complaint: FLU 8 MONTHS PREG Other details as noted in HPI Constitutional: denies: chills, fever Eyes: denies: eye pain, eye discharge, vision change ENT: throat pain, congestion. denies: ear pain Respiratory: cough. denies: shortness of breath, wheezing Cardiovascular: denies: chest pain, palpitations Endocrine: no symptoms reported Gastrointestinal: denies: abdominal pain, nausea, vomiting, diarrhea Genitourinary: denies: urgency, dysuria, discharge Musculoskeletal: denies: back pain, joint swelling, arthralgia Skin: denies: rash, lesions Neurological: denies: headache, weakness, paresthesias Psychiatric: denies: anxiety, depression Hematological/Lymphatic: denies: easy bleeding, easy bruising ED Past Medical Hx - Past Medical History Previous Medical History?: Yes Hx Hypertension: No Hx Diabetes: No Hx Deep Vein Thrombosis: No Hx Renal Disease: No Hx Sickle Cell Disease: No Hx Seizures: No Hx Asthma: Yes (last attack about 1 year) Hx COPD: No Hx HIV: No Additional medical history: heart murmur - Social History Smoking Status: Never Smoker Substance Use Type: None - Medications Home Medications: Home Medications Medication Instructions Recorded Confirmed Last Taken Type Valtrex 500 mg PO DAILY 12/23/17 12/23/17 1 Day Ago History ~12/22/17 Acetaminophen [Mapap] 650 mg PO Q6H PRN #30 tablet 08/05/19 Unknown Rx Albuterol INH(or & Nicu Only) 2 puff IH QID PRN #8.5 gram 08/05/19 Unknown Rx [ProAir HFA Inhaler] Azithromycin [Zithromax Z-LINA] 250 mg PO DAILY 5 Days #6 tab 08/05/19 Unknown Rx predniSONE [Deltasone] 40 mg PO QDAY 5 Days #10 tab 08/05/19 Unknown Rx ED Physical Exam - General Limitations: No Limitations General appearance: alert, in no apparent distress - Head Head exam: Present: atraumatic, normocephalic - Eye Eye exam: Present: PERRL, EOMI Pupils: Present: normal accommodation - ENT ENT exam: Present: normal exam, mucous membranes moist, TM's normal bilaterally, normal external ear exam - Expanded ENT Exam Expanded Ear exam: Present: normal external inspection Throat exam: Positive: tonsillar erythema, other (uvual midline no exudate ). Negative: tonsillomegaly, tonsillar exudate, R peritonsillar mass, L peritonsillar mass - Neck Neck exam: Present: normal inspection, full ROM. Absent: tenderness, meningismus, lymphadenopathy, thyromegaly - Respiratory Respiratory exam: Present: normal lung sounds bilaterally. Absent: respiratory distress, wheezes, rales, rhonchi, stridor, chest wall tenderness - Cardiovascular Cardiovascular Exam: Present: regular rate, normal rhythm, normal heart sounds. Absent: systolic murmur, diastolic murmur, rubs, gallop - GI/Abdominal GI/Abdominal exam: Present: soft, normal bowel sounds. Absent: tenderness, rebound, bruit, hernia - Rectal Rectal exam: Present: deferred - Extremities Exam Extremities exam: Present: normal inspection, full ROM, normal capillary refill. Absent: tenderness - Back Exam Back exam: Present: normal inspection, full ROM. Absent: tenderness, CVA tenderness (R), CVA tenderness (L) - Neurological Exam Neurological exam: Present: alert, oriented X3, CN II-XII intact, normal gait - Psychiatric Psychiatric exam: Present: normal affect, normal mood - Skin Skin exam: Present: warm, dry, intact, normal color. Absent: rash ED Course Vital Signs 08/05/19 08/05/19 08/05/19 19:03 20:06 20:44 Temperature 99.4 F Pulse Rate 86 88 Pulse Rate [ 81 Anterior Bilateral Throughout] Respiratory 18 20 Rate Respiratory 17 Rate [Anterior Bilateral Throughout] Blood Pressure 118/63 Blood Pressure 110/61 [Left] O2 Sat by Pulse 100 99 Oximetry ED Medical Decision Making - Medical Decision Making Symptoms are improved rapid strep: pending, Plan DC to home with refill for albuterol inhaler as needed, prednisone short burst, Tylenol, Z-Lina patient will follow-up with primary care doctor in 2 to 3 days, patient will continue to follow [facility] as scheduled. Critical care attestation.: If time is entered above; I have spent that time in minutes in the direct care of this critically ill patient, excluding procedure time. ED Disposition Clinical Impression: Bronchitis, History of asthma Disposition: DC-01 TO HOME OR SELFCARE Is pt being admited?: No Does the pt Need Aspirin: No Condition: Stable Instructions: Chronic Bronchitis (ED), Asthma (ED) Prescriptions: predniSONE [Deltasone] 40 mg PO QDAY 5 Days #10 tab Acetaminophen [Mapap] 650 mg PO Q6H PRN #30 tablet PRN Reason: pain fever Albuterol INH(or & Nicu Only) [ProAir HFA Inhaler] 2 puff IH QID PRN #8.5 gram PRN Reason: Shortness Of Breath Azithromycin [Zithromax Z-LINA] 250 mg PO DAILY 5 Days #6 tab Referrals: EVY WARD MD [Staff Physician] - 3-5 Days YVROSE MURRAY MD [Staff Physician] - 3-5 Days Forms: Work/School Release Form(ED) Time of Disposition: 21:12
== END 2019-08-05 21:25 | disposition home or self-care (01) ==
LOC: ED 16:53
DX: O99.513 Diseases of the respiratory system complicating pregnancy, third trimester (principal); J40 Bronchitis, not specified as acute or chronic; Z79.899 Other long term (current) drug therapy; Z3A.35 35 weeks gestation of pregnancy
CPT/HCPCS: 94640; 99283; J7512; 94644